=== PATIENT | male | born 1960 | race African-American/Black ===

== ENCOUNTER 2018-03-04 02:36 | Emergency (ER) | payer MEDICAID, OTHER ==
[~2018-03-04] VITALS: Ht 180.3 cm; Wt 80.0 kg
[~2018-03-04 02:36] MED LIST: DIVA125T2; HAL5; RISO02
[2018-03-04] MEDS ORDERED: IBUPROFEN 800MG TABLET PO ONE (06:30)
[2018-03-04 06:53] VITALS: BP 132/72
== END 2018-03-04 06:58 | disposition home or self-care (01) ==
LOC: ER 03:00
DX: K02.9 Dental caries, unspecified (principal); M79.673 Pain in unspecified foot; F17.200 Nicotine dependence, unspecified, uncomplicated; F12.10 Cannabis abuse, uncomplicated; F14.10 Cocaine abuse, uncomplicated; F20.9 Schizophrenia, unspecified; Z88.1 Allergy status to other antibiotic agents
CPT/HCPCS: 99283

== ENCOUNTER 2020-10-02 01:12 | Emergency (ER) | payer MEDICAID, OTHER ==
[~2020-10-02] VITALS: Ht 180.3 cm; Wt 79.0 kg
[2020-10-02 01:34] VITALS: BP 107/73
[2020-10-02] MEDS ORDERED: ACETAMINOPHEN 325MG TABLET PO ONE (01:45)
== END 2020-10-02 02:54 | disposition home or self-care (01) ==
LOC: ER 01:12
DX: J02.9 Acute pharyngitis, unspecified (principal); F20.9 Schizophrenia, unspecified; F14.10 Cocaine abuse, uncomplicated; F12.10 Cannabis abuse, uncomplicated; Z88.8 Allergy status to other drugs, medicaments and biological substances
CPT/HCPCS: 99282

== ENCOUNTER 2021-02-02 22:02 | Emergency (ER) | payer MEDICAID, OTHER ==
[~2021-02-02] VITALS: Ht 180.3 cm; Wt 79.0 kg
[2021-02-02 22:10] VITALS: BP 148/81
== END 2021-02-03 04:41 | disposition left against medical advice (07) ==
LOC: ER 22:02
DX: Z53.21 Procedure and treatment not carried out due to patient leaving prior to being seen by health care provider (principal)

== ENCOUNTER 2021-05-28 02:05 | Emergency (ER) | payer MEDICAID ==
[~2021-05-28] VITALS: Ht 177.8 cm; Wt 82.0 kg
[2021-05-28 04:36] LABS: BASOPHILS % 0.4 % (0.0-2.0); EOSINOPHILS % 5.1 % (0.0-5.0); HEMATOCRIT. 37.1 % (42.0-52.0); HEMOGLOBIN. 12.1 g/dL (14.0-18.0); LYMPHOCYTES % 40.5 % (20.0-50.0); MEAN CORPUSCULAR HEMOGLOBIN 29.7 pg (28.0-32.0); MEAN CORPUSCULAR VOLUME 90.7 fL (80.0-94.0); MEAN PLATELET VOLUME 9.2 fl (7.4-10.4); MONOCYTES % 8.4 % (2.0-8.0); NEUTROPHILS % 45.6 % (40.0-76.0); PLATELET 248 x1000/uL (130-400); RED BLOOD CELL COUNT 4.09 mill/uL (4.7-6.1)
[2021-05-28 04:46] LABS: CHLORIDE 104 mEq/L (98-107)
[2021-05-28 05:00] VITALS: BP 120/69
[2021-05-28] MEDS ORDERED: IOHEXOL-300 100 ML BOTTLE ONE (06:32)
== END 2021-05-28 07:04 | disposition home or self-care (01) ==
LOC: ER 02:05
DX: R13.10 Dysphagia, unspecified (principal); I10 Essential (primary) hypertension; F20.9 Schizophrenia, unspecified; F17.210 Nicotine dependence, cigarettes, uncomplicated; F14.10 Cocaine abuse, uncomplicated; F12.10 Cannabis abuse, uncomplicated; Z88.8 Allergy status to other drugs, medicaments and biological substances
CPT/HCPCS: 36415; 70491; 80048; 85025; 87070; 87430; 99285; Q9967

== ENCOUNTER 2021-12-11 03:46 | Emergency (ER) | payer MEDICAID, OTHER ==
[~2021-12-11] VITALS: Ht 180.3 cm; Wt 83.0 kg
[~2021-12-11 03:46] MED LIST changes: -HAL5; +HALO5TAB2
[2021-12-11 03:53] VITALS: BP 98/66
== END 2021-12-11 09:15 | disposition left against medical advice (07) ==
LOC: ER 03:46
DX: Z53.21 Procedure and treatment not carried out due to patient leaving prior to being seen by health care provider (principal)

== ENCOUNTER 2022-02-25 01:06 | Emergency (ER) | payer MEDICAID ==
[~2022-02-25] VITALS: Ht 180.3 cm; Wt 77.0 kg
[2022-02-25 01:14] VITALS: BP 101/68
== END 2022-02-25 02:26 | disposition left against medical advice (07) ==
LOC: ER 01:06
DX: Z53.21 Procedure and treatment not carried out due to patient leaving prior to being seen by health care provider (principal)

== ENCOUNTER 2022-04-28 18:22 | Emergency (ER) | payer MEDICAID ==
[~2022-04-28] VITALS: Ht 177.8 cm; Wt 80.0 kg
[2022-04-28 18:28] VITALS: BP 125/50
== END 2022-04-28 21:45 | disposition left against medical advice (07) ==
LOC: ER 18:22
DX: R05.3 Chronic cough (principal); I10 Essential (primary) hypertension; Z59.00 Homelessness unspecified; Z91.048 Other nonmedicinal substance allergy status; Z86.59 Personal history of other mental and behavioral disorders
CPT/HCPCS: 99281

== ENCOUNTER 2022-08-06 04:33 | Emergency (ER) | payer OTHER ==
[~2022-08-06] VITALS: Ht 177.8 cm; Wt 74.7 kg
[2022-08-06 04:47] VITALS: BP 101/59
== END 2022-08-06 05:52 | disposition left against medical advice (07) ==
LOC: ER 04:33
DX: F20.9 Schizophrenia, unspecified (principal); I10 Essential (primary) hypertension; F14.10 Cocaine abuse, uncomplicated; F12.10 Cannabis abuse, uncomplicated; Z59.00 Homelessness unspecified; Z88.8 Allergy status to other drugs, medicaments and biological substances
CPT/HCPCS: 99281

== ENCOUNTER 2022-08-14 00:31 | Emergency (ER) | payer OTHER | END 2022-08-14 02:13 | disposition left against medical advice (07) | LOC: ER 00:31 | DX: Z53.21 Procedure and treatment not carried out due to patient leaving prior to being seen by health care provider (principal) ==

== ENCOUNTER 2022-10-27 17:20 | Emergency (ER) | payer OTHER | END 2022-10-27 18:39 | disposition left against medical advice (07) | LOC: ER 17:20 | DX: R45.851 Suicidal ideations (principal); Z53.21 Procedure and treatment not carried out due to patient leaving prior to being seen by health care provider | CPT/HCPCS: 99281 ==

== ENCOUNTER 2023-05-31 04:36 | Emergency (ER) | payer MEDICAID, OTHER ==
[~2023-05-31] VITALS: Ht 177.8 cm; Wt 74.8 kg
[2023-05-31 04:44] VITALS: PULSE 89
[2023-05-31 04:47] VITALS: BP 120/87; RESP 16; TEMP 98.5; O2SAT 99
== END 2023-05-31 05:55 | disposition left against medical advice (07) ==
LOC: ER 04:36
DX: Z53.21 Procedure and treatment not carried out due to patient leaving prior to being seen by health care provider (principal)
CPT/HCPCS: 99281

== ENCOUNTER 2023-06-29 08:59 | Emergency (ER) | payer MEDICAID | END 2023-06-29 09:44 | disposition left against medical advice (07) | LOC: ER 08:59 | DX: F20.9 Schizophrenia, unspecified (principal); Z53.21 Procedure and treatment not carried out due to patient leaving prior to being seen by health care provider | CPT/HCPCS: 99281 ==